=== PATIENT | male | born 1995 | race Caucasian/White ===

== ENCOUNTER 2017-09-24 14:10 | Emergency (ER) | payer MEDICAID | END 2017-09-24 18:51 | disposition left against medical advice (07) | LOC: ER 14:10 | DX: M54.9 Dorsalgia, unspecified (principal); Z53.21 Procedure and treatment not carried out due to patient leaving prior to being seen by health care provider ==

== ENCOUNTER 2018-12-28 16:40 | Emergency (ER) | payer MEDICAID ==
[~2018-12-28] VITALS: Ht 180.3 cm; Wt 110.0 kg
[2018-12-28 16:46] VITALS: BP 149/87
[2018-12-28] MEDS ORDERED: lidocaine 1%/epinephrine 1:100,000 injection 50ml vial ONE (17:45)
[2018-12-28] MEDS ORDERED: SULF1TAB49 PO (20:19)
== END 2018-12-28 20:41 | disposition home or self-care (01) ==
LOC: ER 16:40
DX: L02.01 Cutaneous abscess of face (principal); Z88.0 Allergy status to penicillin; Z79.2 Long term (current) use of antibiotics
CPT/HCPCS: 10060; 99283; J3490

== ENCOUNTER 2020-06-26 13:59 | Emergency (ER) | payer MEDICAID ==
[~2020-06-26] VITALS: Ht 180.3 cm; Wt 100.0 kg
[2020-06-26 14:14] VITALS: BP 143/88
--- NOTE | 2020-06-26 14:38 | NUR ---
Pt evaluated by Provider and discharge ready prior to being brought back to a room. No RN interventions, See MSE by Provider. Pt discharged and medically cleared for residential treatment.
== END 2020-06-26 14:39 | disposition home or self-care (01) ==
LOC: ER 13:59
DX: Z02.89 Encounter for other administrative examinations (principal); F15.90 Other stimulant use, unspecified, uncomplicated; Z72.89 Other problems related to lifestyle; Z98.890 Other specified postprocedural states; Z88.0 Allergy status to penicillin
CPT/HCPCS: 99281